=== PATIENT | male | born 1975 | race Caucasian/White ===

== ENCOUNTER 2020-08-04 18:36 | Inpatient (IN) | payer OTHER ==
[~2020-08-04] VITALS: Ht 170.2 cm; Wt 79.4 kg
[2020-08-04 18:40] VITALS: BP 113/76
[2020-08-04] MEDS ORDERED: OxyCODONE HCL 5 MG IR TABLET PO PRN (20:15)
[2020-08-04] MEDS: HEPARIN SODIUM,PORCINE 5,000 UNITS/ML VIAL SQ SCH (21:09)
[2020-08-04] MEDS: SENNA 187 MG TABLET PO SCH (21:09)
[2020-08-04] MEDS: LevETIRAcetam 500 MG TABLET PO SCH (21:09)
[2020-08-04] MEDS: DOCUSATE SODIUM 100 MG CAPSULE PO SCH (21:09)
[2020-08-04] MEDS: SODIUM CHLORIDE 1 GM TABLET PO SCH (21:09)
[2020-08-05 04:32] VITALS: BP 117/79
[2020-08-05 07:18] LABS: BASOPHILS % (AUTO) 0.6 % (0.0-2.0); HEMATOCRIT 38.4 % (41-53); LYMPHOCYTES # (AUTO) 3.1 K/uL (1.0-4.8); LYMPHOCYTES % (AUTO) 34.1 % (22.0-44.0); MEAN CORPUSCULAR HEMOGLOBIN 28.8 pg (26.0-34.0); MEAN CORPUSCULAR HGB CONC 33.8 G/dL (31.0-37.0); MEAN CORPUSCULAR VOLUME 85 fL (80-100); MONOCYTES # (AUTO) 0.7 K/uL (0.1-1.0); MONOCYTES % (AUTO) 7.3 % (2.0-9.0); NEUTROPHILS # (AUTO) 5.1 K/uL (1.8-7.7); PLATELET COUNT (AUTO) 449 K/uL (150-450); RED BLOOD CELL COUNT(AUTO) 4.51 MIL/uL (4.50-5.90); RED CELL DISTRIBUTION WIDTH 13.5 % (11.5-14.5)
[2020-08-05 07:32] LABS: ALANINE AMINOTRANSFERASE 156 U/L (12-78); ALBUMIN 3.2 g/dL (3.4-5.0); ALKALINE PHOSPHATASE 110 U/L (46-116); ANION GAP 8 mmol/L (8-16); ASPARTATE AMINOTRANSFERASE 43 U/L (15-37); BILIRUBIN,TOTAL 0.3 mg/dL (0.1-1.0); CALCIUM, TOTAL 8.9 mg/dL (8.8-10.5); CARBON DIOXIDE 26 mmol/L (22-29); CHLORIDE 104 mmol/L (98-107); CREATININE 0.81 mg/dL (0.60-1.30); GLOMERULAR FILTR. RATE CALC > 60 mL/min (>60); GLUCOSE,RANDOM 99 mg/dL (70-110); SODIUM SERUM 138 mmol/L (136-145); UREA NITROGEN, BLOOD 11 mg/dL (7-18)
[2020-08-05 07:33] VITALS: BP 108/72
[2020-08-05] MEDS: DOCUSATE SODIUM 100 MG CAPSULE PO SCH ×2 (09:08→20:13)
[2020-08-05] MEDS: HEPARIN SODIUM,PORCINE 5,000 UNITS/ML VIAL SQ SCH ×3 (09:08→20:13)
[2020-08-05] MEDS: LevETIRAcetam 500 MG TABLET PO SCH ×2 (09:08→20:13)
[2020-08-05] MEDS: SODIUM CHLORIDE 1 GM TABLET PO SCH ×3 (09:08→20:13)
[2020-08-05 15:58] VITALS: BP 148/81
[2020-08-05 16:25] VITALS: BP 12/59
[2020-08-05] MEDS: SENNA 187 MG TABLET PO SCH (20:13)
[2020-08-06] VITALS: BP 112/78
[2020-08-06 07:34] VITALS: BP 118/84
[2020-08-06] MEDS: DOCUSATE SODIUM 100 MG CAPSULE PO SCH ×3 (09:00→20:11)
[2020-08-06] MEDS: SODIUM CHLORIDE 1 GM TABLET PO SCH ×3 (09:25→20:10)
[2020-08-06] MEDS: LevETIRAcetam 500 MG TABLET PO SCH ×2 (09:26→20:11)
[2020-08-06] MEDS: HEPARIN SODIUM,PORCINE 5,000 UNITS/ML VIAL SQ SCH ×3 (09:27→20:10)
[2020-08-06 16:05] VITALS: BP 118/81
[2020-08-06] MEDS: SENNA 187 MG TABLET PO SCH (20:11)
[2020-08-07] VITALS: BP 121/74
[2020-08-07] MEDS: HEPARIN SODIUM,PORCINE 5,000 UNITS/ML VIAL SQ SCH ×3 (08:51→20:16)
[2020-08-07] MEDS: DOCUSATE SODIUM 100 MG CAPSULE PO SCH ×2 (08:51→20:15)
[2020-08-07] MEDS: LevETIRAcetam 500 MG TABLET PO SCH ×2 (08:52→20:15)
[2020-08-07] MEDS: SODIUM CHLORIDE 1 GM TABLET PO SCH ×2 (08:52→20:15)
[2020-08-07 09:25] VITALS: BP 125/75
[2020-08-07 15:35] VITALS: BP 106/75
[2020-08-07 16:35] VITALS: BP 114/66
[2020-08-07] MEDS: SENNA 187 MG TABLET PO SCH (20:15)
[2020-08-08 05:11] VITALS: BP 107/73
[2020-08-08 07:13] VITALS: BP 114/73
[2020-08-08] MEDS: LevETIRAcetam 500 MG TABLET PO SCH ×2 (07:59→20:36)
[2020-08-08] MEDS: DOCUSATE SODIUM 100 MG CAPSULE PO SCH (07:59)
[2020-08-08] MEDS: SODIUM CHLORIDE 1 GM TABLET PO SCH ×2 (07:59→20:36)
[2020-08-08] MEDS: HEPARIN SODIUM,PORCINE 5,000 UNITS/ML VIAL SQ SCH (08:00)
[2020-08-08 15:20] VITALS: BP 107/80
[2020-08-08] MEDS: SENNA 187 MG TABLET PO SCH (20:36)
[2020-08-09 05:03] VITALS: BP 115/71
[2020-08-09 06:53] LABS: ANION GAP 10 mmol/L (8-16); CALCIUM, TOTAL 10.3 mg/dL (8.8-10.5); CARBON DIOXIDE 29 mmol/L (22-29); CHLORIDE 101 mmol/L (98-107); CREATININE 0.93 mg/dL (0.60-1.30); GLOMERULAR FILTR. RATE CALC > 60 mL/min (>60); GLUCOSE,RANDOM 106 mg/dL (70-110); POTASSIUM 4.2 mmol/L (3.5-5.1); SODIUM SERUM 140 mmol/L (136-145); UREA NITROGEN, BLOOD 10 mg/dL (7-18)
[2020-08-09 07:06] VITALS: BP 109/70
[2020-08-09] MEDS: SODIUM CHLORIDE 1 GM TABLET PO SCH ×2 (08:05→20:58)
[2020-08-09] MEDS: LevETIRAcetam 500 MG TABLET PO SCH ×2 (08:05→20:58)
[2020-08-09 15:45] VITALS: BP 125/74
[2020-08-09] MEDS: ACETAMINOPHEN 325 MG TABLET PO PRN (17:45)
[2020-08-09] MEDS: SENNA 187 MG TABLET PO SCH (20:58)
[2020-08-10 00:51] VITALS: BP 106/71
[2020-08-10] MEDS: ACETAMINOPHEN 325 MG TABLET PO PRN ×2 (00:51→18:01)
[2020-08-10 07:24] VITALS: BP 121/76
[2020-08-10] MEDS: SODIUM CHLORIDE 1 GM TABLET PO SCH ×2 (08:24→20:16)
[2020-08-10] MEDS: LevETIRAcetam 500 MG TABLET PO SCH ×2 (08:24→20:15)
[2020-08-10 16:17] VITALS: BP 125/77
[2020-08-10] MEDS: SENNA 187 MG TABLET PO SCH (20:15)
[2020-08-11] VITALS: BP 117/69
[2020-08-11] MEDS ORDERED: LEVE250T55 PO (03:48)
[2020-08-11 08:01] VITALS: BP 121/77
[2020-08-11] MEDS: SODIUM CHLORIDE 1 GM TABLET PO SCH (08:37)
[2020-08-11] MEDS: LevETIRAcetam 500 MG TABLET PO SCH (08:37)
[2020-08-11] MEDS: ACETAMINOPHEN 325 MG TABLET PO PRN (08:38)
== END 2020-08-11 12:15 | disposition home or self-care (01) | DRG 83 ==
LOC: 2WR 18:36
PROVIDERS: ADMIT Physical Medicine & Rehabilitation; ATTEND Physical Medicine & Rehabilitation
DX: G81.94 Hemiplegia, unspecified affecting left nondominant side; W01.0XXA Fall on same level from slipping, tripping and stumbling without subsequent striking against object, initial encounter; R51.9 Headache, unspecified; R13.10 Dysphagia, unspecified; R41.842 Visuospatial deficit
CPT/HCPCS: 83735; 87081; 92507; 92523; 97110; 97112; 97116; 97162; 97166; 97530; 97535; 99366; J1644